=== PATIENT | female | born 1965 | race African-American/Black ===

== ENCOUNTER 2017-01-01 13:32 | Emergency (ER) | payer BC ==
[2017-01-01 13:22] LABS: PARTIAL THROMBO TIME 28.8 SEC (22.5-37.2)
[2017-01-01 13:23] LABS: BASOPHILS 0.3 %; BASOPHILS ABSOLUTE 0.04 10/3/uL (0.0-0.16); EOSINOPHILS 5.2 %; ER CBC TAT 0 Hrs 13 Mins; IMMATURE GRANULOCYTES 0.2 %; IMMATURE GRANULOCYTES ABSOLUTE 0.02 10/3/uL (0.0-0.11); INTERNATIONAL NORMAL RATI 1.1 UNITS (-); LYMPHOCYTES 26.6 %; LYMPHOCYTES ABSOLUTE 3.06 10/3/uL (0.67-4.30); MEAN CORPUS HGB CONC 30.9 g/dL (32.0-36.0); MEAN CORPUSCULAR VOLUME 71.2 fL (80-100); MONOCYTES 3.8 %; MONOCYTES ABSOLUTE 0.44 10/3/uL (0.21-1.20); NEUTROPHILS 63.9 %; NEUTROPHILS ABSOLUTE 7.33 10/3/uL (2.02-8.40); PLATELET COUNT 217 10/3/uL (150-400); RED CELL COUNT 5.41 10/6/uL (4.0-5.6); WHITE BLOOD CELLS 11.5 10/3/uL (4.5-10.5)
[2017-01-01 13:24] LABS: HEMATOCRIT 38.5 % (36.0-48.0); HEMOGLOBIN 11.9 g/dL (12.0-16.0); MANUAL DIFF NO %; PROTIME (NOT ORD) 14.2 SEC (12.0-14.5)
[2017-01-01 13:29] LABS: BUN (BLOOD UREA NITROGEN) 10 MG/DL (6-23); CALCIUM, SERUM 8.4 MG/DL (8.5-10.4); CHEST PAIN PROFILE TAT 0 Hrs 19 Mins; CHLORIDE, SERUM 104 MMOL/L (96-112); CO2 (CARBON DIOXIDE) 28 MMOL/L (24-34); CREATININE 0.49 MG/DL (0.55-1.02); GFR AFRICAN AMERICAN 131 ML/MIN (>=60); GFR NON AFRICAN AMERICAN 113 ML/MIN (>=60); GLUCOSE, SERUM 91 MG/DL (60-99); POTASSIUM, SERUM 4.2 MMOL/L (3.5-5.3); SODIUM, SERUM 141 MMOL/L (135-148); TROPONIN I <0.02 NG/ML (<0.05)
[2017-01-01 13:32] LABS: GIANT PLATELET OCC; PLATELET ESTIMATE ADQ (ADEQUATE); RBC MORPHOLOGY NORM (NORMAL); TOXIC GRANULATION SLT
[~2017-01-01 13:32] MED LIST: ADVIL 100100 MG/5 M PO; ALLEGRA180 PO; C5 PO; CELEBREX2 PO; DYMISTA NASAL S23 GM NAS; IRON325 MG PO; MOBIC15 MG PO; NEXIUM40 PO; PROZAC40 MG PO; SINGULAIR1 PO; T PO; VERAMYST27.5 MCG NAS; VITD PO; XYZAL5 MG PO; ZYRTEC ALLGY10 MG PO; [UNRECOGNIZED DRUG - OTHER] PO
== END 2017-01-01 14:40 | disposition home or self-care (01) ==
LOC: ER 13:32
PROVIDERS: Emergency Medicine
DX: R07.89 Other chest pain (principal); Z88.5 Allergy status to narcotic agent; Z88.1 Allergy status to other antibiotic agents; Z79.01 Long term (current) use of anticoagulants; Z79.899 Other long term (current) drug therapy
CPT/HCPCS: 71010; 80048; 83735; 84484; 85025; 85379; 85610; 85730; 93005; 99285